=== PATIENT | female | born 1955 | race Caucasian/White ===

== ENCOUNTER 2020-11-24 15:15 | Observation (INO) | payer OTHER ==
[2020-11-24] MEDS ORDERED: BABY ASPIRIN 81 MG CHEW PO ONE (15:43)
[2020-11-24] MEDS ORDERED: NITRO-BID 2% UD PACKETS TOP ONE (15:43)
[2020-11-24] MEDS ORDERED: NITRO-BID 2% UD PACKETS ONE (15:46)
[2020-11-24] MEDS ORDERED: BABY ASPIRIN 81 MG CHEW ONE (15:46)
--- NOTE | 2020-11-24 15:52 | ERPHSYRPT ---
- History of Present Illness Time Seen by Provider: 11/24/20 15:21 Historian: patient Exam Limitations: no limitations Patient Subjective Stated Complaint: pt states that she has been having a chest discomfort off and on for the past couple of weeks but today it began hurting her left arm, pt had a holter monitor on a week ago from here due to palpatatins Triage Nursing Assessment: Pt drove self to the ER, hypertensive, bradycardic, rates the pressure in her chest as a 1/10, pulses normal, skin n/w/d, no edema, doesn't appear to be in any distress Physician History: 65 years old female with history of hypertension, hyperlipidemia, GERD, anxiety presented in the ER with 2 weeks history of intermittent central/substernal chest pressure fullness with associated palpitations and shortness of breath which last for a few minutes to an hour and improves on its own. Patient also reports feeling dizzy lightheaded during these episodes. She also noticed some tingling sensation in the left arm with the pain but does have some neck pain as well and could be this tingling coming from neck as well. Denies any fever chills or cough. Patient reports having recent evaluation with Holter monitoring which showed couple PVCs and PACs with no rhythm changes. She has cardiac cath done almost 7 years ago which was without any blockage needing PTCA. Timing/Duration: week(s) (2), intermittent, gradual onset Activities at Onset: rest Quality: fullness, pressure Location: central Chest Pain Radiation: arm Severity of Pain-Max: moderate Severity of Pain-Current: mild Modifying Factors: Improves With: nothing Associated Symptoms: palpitations, shortness of breath, dizziness Prior Chest Pain/Cardiac Workup: cardiac cath Nitro Today/Relief: no nitro taken today Aspirin Treatment Today: no aspirin today Allergies/Adverse Reactions: prochlorperazine [From Compazine] Allergy (Verified 11/24/20 15:25) Anaphylactic Reaction Sulfa (Sulfonamide Antibiotics) Allergy (Verified 11/24/20 15:25) Anaphylactic Reaction Home Medications: Aspirin 81 gm Chew [Baby Aspirin 81 mg Chew] 81 mg PO DAILY 11/24/20 [History] Atorvastatin Calcium [Lipitor 40Mg] 40 mg PO DAILY 11/24/20 [History] Bisoprolol Fumarate 10 mg PO BID 11/24/20 [History] Buspirone HCl 0.5 tab PO DAILY 11/24/20 [History] Gabapentin 300 mg [Neurontin 300 mg] 300 mg PO BID 11/24/20 [History] Montelukast Sodium 10 mg [Singulair 10 MG] 10 mg PO DAILY 11/24/20 [History] PANTOPRAZOLE 40 mg Tablet [Protonix 40MG Tablet] 40 mg PO QAM 11/24/20 [History] Venlafaxine HCl ER 75 mg [Effexor XR 75 MG] 75 mg PO DAILY 11/24/20 [History] Travel Risk - International Travel Have you traveled outside of the country in past 3 weeks: No - Coronavirus Screening Are you exhibiting any of the following symptoms?: No Close contact with a COVID-19 positive Pt in past 14-21 Days: No - Vaccine Status Have you recieved a Covid-19 vaccination: Yes 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[employer]: [employer] - Vaccination Dates Date of 2cond Vaccination (if applicable): 10/19/2020 - Review of Systems Constitutional: No Symptoms Eyes: No Symptoms Ears, Nose, & Throat: No Symptoms Respiratory: Dyspnea Cardiac: Chest Pain, Palpitations Abdominal/Gastrointestinal: No Symptoms Genitourinary Symptoms: No Symptoms Musculoskeletal: Neck Pain Skin: No Symptoms Neurological: Dizziness Psychological: No Symptoms Endocrine: No Symptoms Hematologic/Lymphatic: No Symptoms Immunological/Allergic: No Symptoms - Past Medical History Pertinent Past Medical History: Yes Neurological History: No Pertinent History Cardiac History: High Cholesterol, Hypertension Respiratory History: No Pertinent History Endocrine Medical History: No Pertinent History Musculoskeletal History: Degenerative Disk Disease, Osteoarthritis Other Medical History: SX HX: 3 C-SECTIONS - Past Surgical History Past Surgical History: Yes Female Surgical History: Section Other Surgical History: neck fusion - Social History Smoking Status: Never smoker Exposure to second hand smoke: No Drug Use: none Patient Lives Alone: Yes - Female History Hx Now: No - Nursing Vital Signs Nursing Vital Signs: Initial Vital Signs Pulse Rate 56 L 11/24/20 15:16 Respiratory Rate 17 11/24/20 15:16 Blood Pressure 195/79 11/24/20 15:16 O2 Sat by Pulse Oximetry 100 11/24/20 15:16 Pain Scale Pain Intensity 2 - Physical Exam General Appearance: no apparent distress, alert Eye Exam: PERRL/EOMI, eyes nml inspection Ears, Nose, Throat Exam: normal ENT inspection, TMs normal, pharynx normal Neck Exam: normal inspection, non-tender, supple, full range of motion Respiratory Exam: normal breath sounds, lungs clear Cardiovascular Exam: regular rate/rhythm, normal heart sounds Gastrointestinal/Abdomen Exam: soft, normal bowel sounds Back Exam: normal inspection, normal range of motion Extremity Exam: normal inspection, normal range of motion Neurologic Exam: alert, oriented x 3, cooperative, welt beater II-XII nml as tested Skin Exam: normal color SpO2 Interpretation: normal SpO2: 100 O2 Delivery: Room Air Ordered Tests: Active Orders 24 hr Category Date Time Status 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 Care 11/24/20 15:44 Active EKG-ER Only STAT Care 11/24/20 15:43 Active IV Insertion STAT Care 11/24/20 15:43 Active CHEST 1 VIEW (PORTABLE) Stat Exams 11/24/20 15:44 Completed CBC W DIFF Stat Lab 11/24/20 16:04 Completed CMP Stat Lab 11/24/20 16:04 Completed D-DIMER QUANTITATIVE Stat Lab 11/24/20 16:04 Completed NT PRO BNP Stat Lab 11/24/20 16:04 Completed TROPONIN Q3H Lab 11/24/20 16:04 Completed TROPONIN Q3H Lab 11/24/20 18:45 Ordered TROPONIN Q3H Lab 11/24/20 21:45 Ordered TROPONIN Q3H Lab 11/25/20 00:45 Ordered TROPONIN Q3H Lab 11/25/20 03:45 Ordered Medication Summary Discontinued Medications Generic Name Dose Route Start Last Admin Trade Name Freq PRN Reason Stop Dose Admin Aspirin 324 mg 11/24/20 15:43 11/24/20 15:48 Baby Aspirin 81 Mg Chew PO 11/24/20 15:44 324 mg STAT ONE Administration Aspirin Confirm 11/24/20 15:46 Baby Aspirin 81 Mg Chew Administered 11/24/20 15:47 Dose 324 mg .ROUTE .STK-MED ONE Nitroglycerin 1 gm 11/24/20 15:43 11/24/20 15:48 Nitro-Bid 2% Ud Packets TOP 11/24/20 15:44 1 gm STAT ONE Administration Nitroglycerin Confirm 11/24/20 15:46 Nitro-Bid 2% Ud Packets Administered 11/24/20 15:47 Dose 1 gm .ROUTE .STK-MED ONE Lab/Rad Data: Laboratory Result Diagrams 11/24/20 16:04 11/24/20 16:04 Laboratory Results 11/24/20 11/24/20 11/24/20 Range/Units 16:04 16:04 16:04 WBC (4.0-10.5) K/mm3 RBC (4.1-5.4) M/mm3 Hgb (12.0-16.0) gm/dl Hct (35-47) % MCV (78-100) fl MCH (26-32) pg MCHC (32-36) g/dl RDW (11.5-14.0) % Plt Count (150-450) K/mm3 MPV (7.5-11.0) fl Gran % (36.0-66.0) % Eos # (Auto) (0-0.5) Absolute Lymphs (auto) (1.0-4.6) Absolute Monos (auto) (0.0-1.3) Lymphocytes % (24.0-44.0) % Monocytes % (0.0-12.0) % Eosinophils % (0.00-5.0) % Basophils % (0.0-0.4) % Absolute Granulocytes (1.4-6.9) Basophils # (0-0.4) D-Dimer < 215 L (215-500) ng/mL Sodium 139 (137-145) mmol/L Potassium 3.7 (3.5-5.1) mmol/L Chloride 98 (98-107) mmol/L Carbon Dioxide 33 H (22-30) mmol/L Anion Gap 11.3 (5-15) MEQ/L BUN 13 (7-17) mg/dL Creatinine 0.71 (0.52-1.04) mg/dL Estimated GFR > 60.0 ML/MIN Glucose 92 (74-106) mg/dL Calcium 9.8 (8.4-10.2) mg/dL Total Bilirubin 0.40 (0.2-1.3) mg/dL AST 35 (14-36) U/L ALT 14 (0-35) U/L Alkaline Phosphatase 66 (38-126) U/L Troponin I < 0.012 (0.000-0.034) ng/mL NT-Pro-B Natriuret Pep 264 (0-900) pg/mL Serum Total Protein 7.4 (6.3-8.2) g/dL Albumin 4.5 (3.5-5.0) g/dL 11/24/20 Range/Units 16:04 WBC 7.7 (4.0-10.5) K/mm3 RBC 4.32 (4.1-5.4) M/mm3 Hgb 12.5 (12.0-16.0) gm/dl Hct 39.2 (35-47) % MCV 90.7 (78-100) fl MCH 28.9 (26-32) pg MCHC 31.9 L (32-36) g/dl RDW 13.7 (11.5-14.0) % Plt Count 267 (150-450) K/mm3 MPV 10.1 (7.5-11.0) fl Gran % 64.7 (36.0-66.0) % Eos # (Auto) 0.27 (0-0.5) Absolute Lymphs (auto) 1.85 (1.0-4.6) Absolute Monos (auto) 0.57 (0.0-1.3) Lymphocytes % 24.1 (24.0-44.0) % Monocytes % 7.4 (0.0-12.0) % Eosinophils % 3.5 (0.00-5.0) % Basophils % 0.3 (0.0-0.4) % Absolute Granulocytes 4.97 (1.4-6.9) Basophils # 0.02 (0-0.4) D-Dimer (215-500) ng/mL Sodium (137-145) mmol/L Potassium (3.5-5.1) mmol/L Chloride (98-107) mmol/L Carbon Dioxide (22-30) mmol/L Anion Gap (5-15) MEQ/L BUN (7-17) mg/dL Creatinine (0.52-1.04) mg/dL Estimated GFR ML/MIN Glucose (74-106) mg/dL Calcium (8.4-10.2) mg/dL Total Bilirubin (0.2-1.3) mg/dL AST (14-36) U/L ALT (0-35) U/L Alkaline Phosphatase (38-126) U/L Troponin I (0.000-0.034) ng/mL NT-Pro-B Natriuret Pep (0-900) pg/mL Serum Total Protein (6.3-8.2) g/dL Albumin (3.5-5.0) g/dL - Progress Progress: improved Air Movement: good Progress Note: 11/24/20 18:44 65 years old is evaluated for intermittent chest pain pressure. EKG did not show any acute ST elevations. Negative initial troponin and D-dimers. She is given aspirin and Nitropaste, reevaluation her pressure is completely resolved. Patient has cardiac cath done almost 7 years ago which was negative. I believe patient symptoms are equivalent to unstable angina and need at least trending of cardiac enzymes and started cardiac work-up. Discussed with Dr. Vargas and patient is accepted for admission. Blood Culture(s) Obtained: No Antibiotics given: No Discussed with : Marcial Will see patient in: hospital (observation) Counseled pt/family regarding: lab results, diagnosis, rad results - Departure Departure Disposition: Observation Clinical Impression: Chest pain, rule out acute myocardial infarction Condition: Stable Critical Care Time: No Referrals: CHRISTOPHER WILD [Primary Care Provider] -
--- NOTE | 2020-11-24 16:30 | XRAY ---
Indication: Chest pain/pressure and left arm numbness. Comparison: None Portable chest hyperinflated and clear. Heart not enlarged. Bony thorax intact with mild dextroscoliosis.
[2020-11-24 17:11] LABS: ALBUMIN 4.5 g/dL (3.5-5.0); ALKALINE PHOSPHATASE 66 U/L (38-126); ANION GAP 11.3 MEQ/L (5-15); BLOOD UREA NITROGEN 13 mg/dL (7-17); CHLORIDE 98 mmol/L (98-107); Calcium 9.8 mg/dL (8.4-10.2); Carbon Dioxide 33 mmol/L (22-30); Creatinine 1 0.71 mg/dL (0.52-1.04); EST GLOMERULAR FILTRATION RATE > 60.0 ML/MIN; Glucose 92 mg/dL (74-106); NT PRO BNP 264 pg/mL (0-900); Potassium 3.7 mmol/L (3.5-5.1); SGOT/AST 35 U/L (14-36); SGPT/ALT 14 U/L (0-35); SODIUM 139 mmol/L (137-145); Total Protein 7.4 g/dL (6.3-8.2)
[2020-11-24 17:40] LABS: Absolute Neutrophil Ct (ANC) 4.97 (1.4-6.9); BASOPHIL % 0.3 % (0.0-0.4); Basophil (Absolute #) 0.02 (0-0.4); Eosinophil % 3.5 % (0.00-5.0); Eosinophil (Absolute #) 0.27 (0-0.5); Hematocrit 39.2 % (35-47); Hemoglobin 12.5 gm/dl (12.0-16.0); Lymphocyte (Absolute #) 1.85 (1.0-4.6); Lymphocytes % 24.1 % (24.0-44.0); Mean Cell Volume 90.7 fl (78-100); Mean Corpuscular Hemoglobin 28.9 pg (26-32); Mean Corpuscular Hgb Concent. 31.9 g/dl (32-36); Mean Platelet Volume 10.1 fl (7.5-11.0); Monocyte (Absolute #) 0.57 (0.0-1.3); Monocytes % 7.4 % (0.0-12.0); Neutrophil % 64.7 % (36.0-66.0); Platelet Count 267 K/mm3 (150-450); Red Blood Count 4.32 M/mm3 (4.1-5.4); Red Cell Distribution Width 13.7 % (11.5-14.0); White Blood Count 7.7 K/mm3 (4.0-10.5)
[2020-11-24 20:13] LABS: INFLUENZA A NEGATIVE (NEGATIVE); INFLUENZA B NEGATIVE (NEGATIVE); RESPIRATORY SYNCTIAL VIRUS NEGATIVE (Negative)
[2020-11-24] MEDS ORDERED: Zofran 4 MG/2 ML VIAL IV PRN (21:51)
[2020-11-24] MEDS ORDERED: DUONEB 0.5-3 MG/3 ml Neb IH PRN (21:51)
[2020-11-24] MEDS ORDERED: MORPHINE SULFATE 2 MG INJ IV PRN (21:51)
[2020-11-24 23:16] VITALS: O2SAT 97
[2020-11-25] MEDS: TYLENOL 325 MG PO PRN ×2 (00:53→06:45)
[2020-11-25 05:26] LABS: Absolute Neutrophil Ct (ANC) 3.24 (1.4-6.9); BASOPHIL % 0.2 % (0.0-0.4); Basophil (Absolute #) 0.01 (0-0.4); Eosinophil % 4.8 % (0.00-5.0); Eosinophil (Absolute #) 0.28 (0-0.5); Hematocrit 36.2 % (35-47); Hemoglobin 11.5 gm/dl (12.0-16.0); Lymphocyte (Absolute #) 1.95 (1.0-4.6); Lymphocytes % 33.2 % (24.0-44.0); Mean Cell Volume 91.4 fl (78-100); Mean Corpuscular Hgb Concent. 31.8 g/dl (32-36); Mean Platelet Volume 9.9 fl (7.5-11.0); Monocytes % 6.8 % (0.0-12.0); Platelet Count 249 K/mm3 (150-450); Red Blood Count 3.96 M/mm3 (4.1-5.4); Red Cell Distribution Width 13.7 % (11.5-14.0); White Blood Count 5.9 K/mm3 (4.0-10.5)
[2020-11-25 05:49] LABS: ALBUMIN 4.1 g/dL (3.5-5.0); ALKALINE PHOSPHATASE 55 U/L (38-126); ANION GAP 9.3 MEQ/L (5-15); BLOOD UREA NITROGEN 12 mg/dL (7-17); CHLORIDE 103 mmol/L (98-107); Calcium 9.4 mg/dL (8.4-10.2); Carbon Dioxide 30 mmol/L (22-30); Creatinine 1 0.68 mg/dL (0.52-1.04); EST GLOMERULAR FILTRATION RATE > 60.0 ML/MIN; Glucose 89 mg/dL (74-106); Potassium 3.8 mmol/L (3.5-5.1); SGOT/AST 24 U/L (14-36); SGPT/ALT 13 U/L (0-35); SODIUM 138 mmol/L (137-145); Total Protein 6.9 g/dL (6.3-8.2)
[2020-11-25 08:18] VITALS: BP 124/68; PULSE 57
[2020-11-25] MEDS ORDERED: PROTONIX 40 MG IV IV SCH (10:00)
--- NOTE | 2020-12-14 21:21 | PCM.SSS ---
History of Present Illness - Chief Complaint Chief Complaint: Chest pain rule out MD Date: 11/25/20 History of Present Illness: is a 65 year old female. Presented to ER with intermittent chest pain over the past few weeks, but noted worsening of symptoms with sob and radiation down the left arm prompting ER visit, work-up in ER negative, it was felt patient should be further evaluated for chest pain to rule out MD. - Review of Systems Constitutional: No Fever, No Chills Eyes: No Symptoms Ears, Nose, & Throat: No Symptoms Respiratory: Short Of Breath, No Cough Cardiac: Chest Pain, No Edema, No Syncope Abdominal/Gastrointestinal: No Abdominal Pain, No Nausea, No Vomiting, No Diarrhea Genitourinary Symptoms: No Dysuria Musculoskeletal: No Back Pain, No Neck Pain Skin: No Rash Neurological: No Dizziness, No Focal Weakness, No Sensory Changes Psychological: No Symptoms Endocrine: No Symptoms Hematologic/Lymphatic: No Symptoms Immunological/Allergic: No Symptoms Medications & Allergies Home Medications: Home Medication List Aspirin 81 gm Chew [Baby Aspirin 81 mg Chew] 81 mg PO DAILY 11/24/20 [History Confirmed 11/24/20] Atorvastatin Calcium [Lipitor 40Mg] 40 mg PO DAILY 11/24/20 [History Confirmed 11/24/20] Bisoprolol Fumarate 10 mg PO BID 11/24/20 [History Confirmed 11/24/20] Buspirone HCl 0.5 tab PO DAILY 11/24/20 [History Confirmed 11/24/20] Gabapentin 300 mg [Neurontin 300 mg] 300 mg PO BID 11/24/20 [History Confirmed 11/24/20] Montelukast Sodium 10 mg [Singulair 10 MG] 10 mg PO DAILY 11/24/20 [History Confirmed 11/24/20] PANTOPRAZOLE 40 mg Tablet [Protonix 40MG Tablet] 40 mg PO QAM 11/24/20 [History Confirmed 11/24/20] Venlafaxine HCl ER 75 mg [Effexor XR 75 MG] 75 mg PO DAILY 11/24/20 [History Confirmed 11/24/20] Amlodipine Besylate 2.5 mg PO DAILY #30 tablet 11/25/20 [Rx] Allergies/Adverse Reactions: Allergies Allergy/AdvReac Type Severity Reaction Status Date / Time prochlorperazine Allergy Anaphylactic Verified 11/24/20 15:25 [From Compazine] Reaction Sulfa (Sulfonamide Allergy Anaphylactic Verified 11/24/20 15:25 Antibiotics) Reaction - Past Medical History Past Medical History: Yes Neurological History: No Pertinent History Cardiac History: High Cholesterol, Hypertension Respiratory History: No Pertinent History Endocrine Medical History: No Pertinent History Musculoskelatal History: Degenerative Disk Disease, Osteoarthritis Comment: SX HX: 3 C-SECTIONS - Female History Are you now?: No - Past Surgical History Past Surgical History: Yes Female Surgical History: Section Other Surgical History: neck fusion - Social History Smoking Status: Never smoker Exposure to second hand smoke: No Alcohol: Weekly Drug Use: none - Physical Exam General Appearance: no apparent distress, alert Neurologic Exam: alert, oriented x 3, cooperative, normal mood/affect, nml cerebellar function, nml station & gait, sensation nml, No motor deficits Eye Exam: PERRL/EOMI, eyes nml inspection Ears, Nose, Throat Exam: normal ENT inspection, TMs normal, pharynx normal, moist mucous membranes Neck Exam: normal inspection, non-tender, supple, full range of motion Respiratory Exam: normal breath sounds, lungs clear, No respiratory distress Cardiovascular Exam: regular rate/rhythm, normal heart sounds, normal peripheral pulses Gastrointestinal/Abdomen Exam: soft, normal bowel sounds, No tenderness, No mass Back Exam: normal inspection, normal range of motion, No CVA tenderness, No vertebral tenderness Extremity Exam: normal inspection, normal range of motion, pelvis stable Skin Exam: normal color, warm, dry, No rash Lymphatic Exam: No adenopathy Assessment/Plan (1) Chest pain, rule out acute myocardial infarction Status: Acute Assessment & Plan: observe for serial troponins, cardiac stress test will be ordered for further evaluation Code(s): R07.9 - CHEST PAIN, UNSPECIFIED (2) Uncontrolled hypertension Status: Acute Assessment & Plan: Will start on amlodipine Code(s): I10 - ESSENTIAL (PRIMARY) HYPERTENSION Hospital Summary - Hospital Course Hospital Course: Pt. admitted all troponin tests were negative and pt. ready for discharge. - Vitals & Intake/Output Vital Signs: Vital Signs Temperature 97.9 F 11/25/20 08:00 Pulse Rate 57 L 11/25/20 08:00 Respiratory Rate 16 11/25/20 08:00 Blood Pressure 124/68 11/25/20 08:00 O2 Sat by Pulse Oximetry 97 11/25/20 08:00 - Lab Result Diagrams: 11/25/20 04:40 11/25/20 04:40 - Procedures and Test Procedures and Tests throughout Hospitalization: Therapy Orders & Screens 11/25/20 09:15 Schedule Outpt Stress Test ROUTINE Comment: Diagnosis: Chest pain rule out MD Schedule Outpt Stress Test: Cardiolyte Stress Test Cardiolite Stress Test: Cardiolite Treadmill - Discharge Discharge Date: 11/25/20 Disposition: Home, Self-Care Condition: Stable Prescriptions: New Amlodipine Besylate 2.5 mg PO DAILY #30 tablet No Action Montelukast Sodium 10 mg [Singulair 10 MG] 10 mg PO DAILY Buspirone HCl 0.5 tab PO DAILY Bisoprolol Fumarate 10 mg PO BID Aspirin 81 gm Chew [Baby Aspirin 81 mg Chew] 81 mg PO DAILY Venlafaxine HCl ER 75 mg [Effexor XR 75 MG] 75 mg PO DAILY Gabapentin 300 mg [Neurontin 300 mg] 300 mg PO BID PANTOPRAZOLE 40 mg Tablet [Protonix 40MG Tablet] 40 mg PO QAM Atorvastatin Calcium [Lipitor 40Mg] 40 mg PO DAILY Instructions: Angina, Chest Pain, Chest Pain That Is Not Caused by the Heart (DC) Additional Instructions: Return to the hospital on December 09 at 7:00 am for your scheduled Stress Test. Follow up with: ALEXANDRIA RUELAS [ACTIVE STAFF] - 12/02/20 1:45 pm
== END 2020-11-25 10:25 | disposition home or self-care (01) ==
LOC: ED 15:15 → MED SURG 20:28
PROVIDERS: ADMIT Family Medicine; ATTEND Family Medicine
DX: R07.9 Chest pain, unspecified (principal); I10 Essential (primary) hypertension; E78.5 Hyperlipidemia, unspecified; R00.2 Palpitations; R42 Dizziness and giddiness; Z79.899 Other long term (current) drug therapy; Z20.828 Contact with and (suspected) exposure to other viral communicable diseases; E78.00 Pure hypercholesterolemia, unspecified
CPT/HCPCS: 0241U; 36000; 36415; 71045; 80053; 83880; 84484; 85025; 85379; 93005; 93041; 93268; 99284; G0378; A9270-GY

== ENCOUNTER 2021-05-11 12:31 | Emergency (ER) | payer OTHER ==
[2021-05-11] MEDS ORDERED: Sodium Chloride 0.9% 1000 ML 1,000 ML IV STA (12:59)
[2021-05-11] MEDS ORDERED: Zofran 4 MG/2 ML VIAL IV ONE (12:59)
[2021-05-11] MEDS ORDERED: Hydromorphone 1 mg/ml Injection IV ONE (12:59)
--- NOTE | 2021-05-11 12:59 | ERPHSYRPT ---
- History of Present Illness Time Seen by Provider: 05/11/21 12:50 Historian: patient Exam Limitations: no limitations Patient Subjective Stated Complaint: PT states "It started yesterday. I felt like I needed to go to the bathroom and I have been going all night and there is quite a bit of bright red blood in it. 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 Physician History: This is a 66-year-old white female patient of Dr. Ruelas who presents with left lower quadrant abdominal pain and some rectal bleeding. She has had associated nausea but no vomiting. She had loose stools that have been bloody. She has cramping pain in the left lower quadrant which she also feels into her back. Ho wever, she does say that she has chronic back pain from degenerative disc disease. Patient underwent a colonoscopy about a month ago which showed diverticula in the left colon per her report. Patient is not on any blood thinning medication. She does have a history of gastroesophageal reflux disea se, COPD and hypertension. Timing/Duration: yesterday Activities at Onset: none Quality: aching, cramping Abdominal Pain Onset Location: LLQ Pain Radiation: back Severity of Pain-Max: moderate (Left side) Modifying Factors: Improves With: nothing Associated Symptoms: diarrhea, loss of appetite, nausea, No chest pain, No fever/chills, No shortness of breath, No vomiting Previous symptoms: no prior history Allergies/Adverse Reactions: prochlorperazine [From Compazine] Allergy (Verified 11/24/20 15:25) Anaphylactic Reaction Sulfa (Sulfonamide Antibiotics) Allergy (Verified 11/24/20 15:25) Anaphylactic Reaction Home Medications: Aspirin 81 gm Chew [Baby Aspirin 81 mg Chew] 81 mg PO DAILY 11/24/20 [History] Atorvastatin Calcium [Lipitor 40Mg] 40 mg PO DAILY 11/24/20 [History] Bisoprolol Fumarate 10 mg PO BID 11/24/20 [History] Buspirone HCl 0.5 tab PO DAILY 11/24/20 [History] Gabapentin 300 mg [Neurontin 300 mg] 300 mg PO BID 11/24/20 [History] Montelukast Sodium 10 mg [Singulair 10 MG] 10 mg PO DAILY 11/24/20 [History] PANTOPRAZOLE 40 mg Tablet [Protonix 40MG Tablet] 40 mg PO QAM 11/24/20 [History] Venlafaxine HCl ER 75 mg [Effexor XR 75 MG] 75 mg PO DAILY 11/24/20 [History] Hx Tetanus, Diphtheria Vaccination/Date Given: Yes Hx Influenza Vaccination/Date Given: Yes Hx Pneumococcal Vaccination/Date Given: No Immunizations Up to Date: Yes Travel Risk - International Travel Have you traveled outside of the country in past 3 weeks: No - Coronavirus Screening Are you exhibiting any of the following symptoms?: No Close contact with a COVID-19 positive Pt in past 14-21 Days: No - Vaccine Status Have you recieved a Covid-19 vaccination: Yes 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: [employer] - Vaccination Dates Date of 2cond Vaccination (if applicable): 10/19/20 - Review of Systems Constitutional: No Symptoms Eyes: No Symptoms Ears, Nose, & Throat: No Symptoms Respiratory: No Symptoms Cardiac: No Symptoms Abdominal/Gastrointestinal: Abdominal Pain (Left lower quadrant), Nausea, Diarrhea, Hematochezia, Appetite Changes, No Vomiting Genitourinary Symptoms: No Symptoms Musculoskeletal: No Symptoms Skin: No Symptoms Neurological: No Symptoms Psychological: No Symptoms Endocrine: No Symptoms Hematologic/Lymphatic: No Symptoms Immunological/Allergic: No Symptoms All Other Systems: Reviewed and Negative - Past Medical History Pertinent Past Medical History: Yes Neurological History: No Pertinent History Cardiac History: High Cholesterol, Hypertension Respiratory History: No Pertinent History Endocrine Medical History: No Pertinent History Musculoskeletal History: Degenerative Disk Disease, Osteoarthritis Other Medical History: SX HX: 3 C-SECTIONS - Past Surgical History Past Surgical History: Yes Female Surgical History: Section Other Surgical History: neck fusion - Social History Smoking Status: Never smoker Exposure to second hand smoke: No Drug Use: none Patient Lives Alone: No - Nursing Vital Signs Nursing Vital Signs: Initial Vital Signs Temperature 97.6 F 05/11/21 12:44 Pulse Rate 76 05/11/21 12:44 Respiratory Rate 20 05/11/21 12:44 Blood Pressure 156/82 05/11/21 12:44 O2 Sat by Pulse Oximetry 100 05/11/21 12:44 Pain Scale Pain Intensity 6 - Physical Exam General Appearance: no apparent distress, alert, anxiety, thin Eye Exam: PERRL/EOMI, eyes nml inspection Ears, Nose, Throat Exam: normal ENT inspection, moist mucous membranes Neck Exam: normal inspection, non-tender, supple, full range of motion Respiratory Exam: normal breath sounds, lungs clear, airway intact, No chest tenderness, No respiratory distress Cardiovascular Exam: regular rate/rhythm, normal heart sounds, normal peripheral pulses Gastrointestinal/Abdomen Exam: soft, normal bowel sounds, tenderness (Left lower quadrant), guarding, No rebound Pelvic Exam: not done Rectal Exam: not done Back Exam: normal inspection, normal range of motion, No CVA tenderness, No vertebral tenderness Extremity Exam: normal inspection, normal range of motion, pelvis stable Neurologic Exam: alert, oriented x 3, cooperative, 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, normal mood/affect, nml cerebellar function, nml station & gait, sensation nml Skin Exam: normal color, warm, dry Lymphatic Exam: No adenopathy SpO2 Interpretation: normal SpO2: 100 O2 Delivery: Room Air - Course Nursing assessment & vital signs reviewed: Yes Ordered Tests: Active Orders 24 hr Category Date Time Status IV Insertion STAT Care 05/11/21 12:59 Active ABDOMEN AND PELVIS W/0 CONTRAS [CT] Stat Exams 05/11/21 13:00 Completed AMYLASE Stat Lab 05/11/21 12:20 Completed CBC W DIFF Stat Lab 05/11/21 12:20 Completed CMP Stat Lab 05/11/21 12:20 Completed FECAL OCCULT BLOOD - SCREENING Stat Lab 05/11/21 Ordered LIPASE Stat Lab 05/11/21 12:20 Completed Lactic Acid Stat Lab 05/11/21 13:10 Completed UA W/RFX UR CULTURE Stat Lab 05/11/21 13:00 Ordered Medication Summary Discontinued Medications Generic Name Dose Route Start Last Admin Trade Name Freq PRN Reason Stop Dose Admin Hydromorphone HCl 0.5 mg 05/11/21 12:59 05/11/21 13:07 Hydromorphone 1 Mg/Ml Injection IV 05/11/21 13:00 0.5 mg STAT ONE Administration Hydromorphone HCl Confirm 05/11/21 13:04 Hydromorphone 1 Mg/Ml Injection Administered 05/11/21 13:05 Dose 1 mg .ROUTE .STK-MED ONE Sodium Chloride 1,000 mls @ 999 mls/hr 05/11/21 12:59 05/11/21 14:12 Sodium Chloride 0.9% 1000 Ml IV 05/11/21 13:59 Infused .Q1H1M STA Infusion Sodium Chloride Confirm 05/11/21 13:05 Sodium Chloride 0.9% 1000 Ml Administered 05/11/21 13:06 Dose 1,000 mls @ ud .ROUTE .STK-MED ONE Ondansetron HCl 4 mg 05/11/21 12:59 05/11/21 13:06 Zofran 4 Mg/2 Ml Vial IV 05/11/21 13:00 4 mg STAT ONE Administration Ondansetron HCl Confirm 05/11/21 13:04 Zofran 4 Mg/2 Ml Vial Administered 05/11/21 13:05 Dose 4 mg .ROUTE .STK-MED ONE Lab/Rad Data: Laboratory Result Diagrams 05/11/21 12:20 05/11/21 12:20 Laboratory Results 05/11/21 05/11/21 05/11/21 Range/Units 13:10 12:20 12:20 WBC 8.8 (4.0-10.5) K/mm3 RBC 4.20 (4.1-5.4) M/mm3 Hgb 12.9 (12.0-16.0) gm/dl Hct 40.2 (35-47) % MCV 95.7 (78-100) fl MCH 30.7 (26-32) pg MCHC 32.1 (32-36) g/dl RDW 13.7 (11.5-14.0) % Plt Count 375 (150-450) K/mm3 MPV 9.3 (7.5-11.0) fl Gran % 73.8 H (36.0-66.0) % Eos # (Auto) 0.13 (0-0.5) Absolute Lymphs (auto) 1.36 (1.0-4.6) Absolute Monos (auto) 0.80 (0.0-1.3) Lymphocytes % 15.5 L (24.0-44.0) % Monocytes % 9.1 (0.0-12.0) % Eosinophils % 1.5 (0.00-5.0) % Basophils % 0.1 (0.0-0.4) % Absolute Granulocytes 6.49 (1.4-6.9) Basophils # 0.01 (0-0.4) Sodium 140 (137-145) mmol/L Potassium 3.6 (3.5-5.1) mmol/L Chloride 99 (98-107) mmol/L Carbon Dioxide 31 H (22-30) mmol/L Anion Gap 13.6 (5-15) MEQ/L BUN 10 (7-17) mg/dL Creatinine 0.89 (0.52-1.04) mg/dL Estimated GFR > 60.0 ML/MIN Glucose 115 H (74-106) mg/dL Lactic Acid 0.9 (0.4-2.0) Calcium 9.6 (8.4-10.2) mg/dL Total Bilirubin 0.50 (0.2-1.3) mg/dL AST 30 (14-36) U/L ALT 20 (0-35) U/L Alkaline Phosphatase 76 (38-126) U/L Serum Total Protein 7.6 (6.3-8.2) g/dL Albumin 4.5 (3.5-5.0) g/dL Amylase 68 (30-110) U/L Lipase 62 (23-300) U/L - Progress Progress: improved, pain not gone completely, re-examined Progress Note: 05/11/21 14:24 CT scan of the abdomen and pelvis without contrast shows minimal colitis in the descending colon without complications. (No abscess, no perforation) Counseled pt/family regarding: lab results, diagnosis, need for follow-up, rad results - Departure Departure Disposition: Home Clinical Impression: Colitis Condition: Stable Critical Care Time: No Referrals: ALEXANDRIA RUELAS MD [Primary Care Provider] - Additional Instructions: Drink plenty of fluids. Do not advance your diet until you are drinking plenty of clear liquids. Take your medication as prescribed. Follow-up with your primary care physician for persistent symptoms. Return to the emergency department symptoms worsen. Prescriptions: Ondansetron ODT 4 MG [Zofran Odt 4 mg] 4 mg PO Q6H PRN PRN #10 tablet PRN Reason: Vomiting Hydrocodone/APAP 5/325 [[place] 5/325 mg] 1 each PO Q8H PRN PRN #8 tablet MDD 3 PRN Reason: Pain Ciprofloxacin [Cipro 500 MG] 500 mg PO BID #14 tablet Metronidazole 500 mg [Flagyl 500 MG] 500 mg PO TID #21 tablet
[2021-05-11] MEDS ORDERED: Zofran 4 MG/2 ML VIAL ONE (13:04)
[2021-05-11] MEDS ORDERED: Hydromorphone 1 mg/ml Injection ONE (13:04)
[2021-05-11] MEDS ORDERED: Sodium Chloride 0.9% 1000 ML 1,000 ML ONE (13:05)
[2021-05-11 13:19] LABS: Absolute Neutrophil Ct (ANC) 6.49 (1.4-6.9); BASOPHIL % 0.1 % (0.0-0.4); Basophil (Absolute #) 0.01 (0-0.4); Eosinophil % 1.5 % (0.00-5.0); Eosinophil (Absolute #) 0.13 (0-0.5); Hematocrit 40.2 % (35-47); Hemoglobin 12.9 gm/dl (12.0-16.0); Lymphocyte (Absolute #) 1.36 (1.0-4.6); Lymphocytes % 15.5 % (24.0-44.0); Mean Cell Volume 95.7 fl (78-100); Mean Corpuscular Hemoglobin 30.7 pg (26-32); Mean Corpuscular Hgb Concent. 32.1 g/dl (32-36); Mean Platelet Volume 9.3 fl (7.5-11.0); Monocytes % 9.1 % (0.0-12.0); Neutrophil % 73.8 % (36.0-66.0); Platelet Count 375 K/mm3 (150-450); Red Cell Distribution Width 13.7 % (11.5-14.0); White Blood Count 8.8 K/mm3 (4.0-10.5)
[2021-05-11 13:46] LABS: ALBUMIN 4.5 g/dL (3.5-5.0); ALKALINE PHOSPHATASE 76 U/L (38-126); AMYLASE 68 U/L (30-110); ANION GAP 13.6 MEQ/L (5-15); BLOOD UREA NITROGEN 10 mg/dL (7-17); CHLORIDE 99 mmol/L (98-107); Calcium 9.6 mg/dL (8.4-10.2); Carbon Dioxide 31 mmol/L (22-30); Creatinine 1 0.89 mg/dL (0.52-1.04); EST GLOMERULAR FILTRATION RATE > 60.0 ML/MIN; Glucose 115 mg/dL (74-106); LIPASE 62 U/L (23-300); Potassium 3.6 mmol/L (3.5-5.1); SGOT/AST 30 U/L (14-36); SGPT/ALT 20 U/L (0-35); SODIUM 140 mmol/L (137-145); Total Protein 7.6 g/dL (6.3-8.2)
--- NOTE | 2021-05-11 14:06 | XRAY ---
Indication: Blood in stool, cramping, diarrhea, and nausea. Irritable bowel. Multiple contiguous images obtained through the abdomen and pelvis without contrast. Comparison: April 13, 2021. Lung bases remain clear. Heart not enlarged. Noncontrasted stomach and bowel loops remain nonobstructed. Descending colon now demonstrates mild wall thickening and minimal pericolonic stranding favoring colitis. No free fluid/air. 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 Remaining liver, gallbladder, pancreas, spleen, adrenal glands, kidneys, ureters, bladder, and uterus are unremarkable for noncontrast exam. Again minimal aortic calcifications without AAA. Osseous structures intact again with mild degenerative changes of the spine and moderate levorotoscoliosis. Impression: 1. New minimal colitis involving descending colon. No complications. 2. Stable right renal cyst, splenic artery calcified saccular aneurysm, and chronic bony findings.
[2021-05-11 14:14] VITALS: BP 157/76; PULSE 73
[2021-05-11] MEDS ORDERED: Zosyn 3.375 GM Vial 3.375 GM in Sodium Chloride 100ML MINI-BAG PLUS 100 ML IV ONE (14:23)
[2021-05-11 14:27] VITALS: O2SAT 100
== END 2021-05-11 15:10 | disposition home or self-care (01) ==
LOC: ED 12:31
DX: K52.9 Noninfective gastroenteritis and colitis, unspecified (principal)
CPT/HCPCS: 36000; 36415; 74176; 80053; 82150; 83605; 83690; 85025; 96374; 96375; 99284; J1170; J2405

== ENCOUNTER 2021-12-22 13:05 | Emergency (ER) | payer OTHER ==
--- NOTE | 2021-12-22 13:08 | ERPHSYRPT ---
- History of Present Illness Time Seen by Provider: 12/22/21 13:07 Historian: patient Physician History: This is a 66-year-old white female patient of Dr. Ruelas who presents to the emergency department with a 3-day history of several episodes of diarrheal stools despite the use of Imodium. Patient has never had anything like this in the past. She has no known exposure to any individual with similar symptoms. She has no known exposures to anybody with C. difficile infection. She has not been on antibiotics recently. Patient denies chest pain and she denies shortness of breath. Patient has a history of hypertension, elevated cholesterol degenerative disc disease. Patient believes she had a colonoscopy approximately a year or 2 ago. Timing/Duration: day(s) (3) Quality: aching Abdominal Pain Onset Location: generalized abdomen (Mild ache) Severity of Pain-Max: mild Severity of Pain-Current: mild Modifying Factors: Worsens With: vomiting Associated Symptoms: diarrhea, No chest pain, No headache, No loss of appetite, No nausea, No vomiting, No weakness Previous symptoms: no prior history Allergies/Adverse Reactions: Iodinated Contrast Media Allergy (Verified 12/22/21 13:37) prochlorperazine [From Compazine] Allergy (Verified 12/22/21 13:28) Anaphylactic Reaction Sulfa (Sulfonamide Antibiotics) Allergy (Verified 12/22/21 13:28) Anaphylactic Reaction Home Medications: Atorvastatin Calcium [Lipitor 40Mg] 40 mg PO DAILY 11/24/20 [History] Bisoprolol Fumarate 10 mg PO BID 11/24/20 [History] Buspirone HCl 0.5 tab PO DAILY 11/24/20 [History] Gabapentin [Neurontin 300 mg] 300 mg PO BID 11/24/20 [History] PANTOPRAZOLE 40 mg Tablet [Protonix 40MG Tablet] 40 mg PO BID 11/24/20 [History] Venlafaxine HCl ER 75 mg [Effexor XR 75 MG] 150 mg PO DAILY 11/24/20 [History] Albuterol Sulfate [Proair Hfa] 8.5 gm IH UD 12/22/21 [History] Amlodipine Besylate 10 mg PO DAILY 12/22/21 [History] Lisinopril 10 mg [Zestril 10 MG] 10 mg PO DAILY 12/22/21 [History] Meloxicam [Mobic] 15 mg PO UD 12/22/21 [History] Progesterone, Micronized [Progesterone] 200 mg PO DAILY 12/22/21 [History] Hx Tetanus, Diphtheria Vaccination/Date Given: Yes Hx Influenza Vaccination/Date Given: Yes Hx Pneumococcal Vaccination/Date Given: No Travel Risk - International Travel Have you traveled outside of the country in past 3 weeks: No - Coronavirus Screening Are you exhibiting any of the following symptoms?: No Close contact with a COVID-19 positive Pt in past 14-21 Days: No - Vaccine Status Have you recieved a Covid-19 vaccination: Yes 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[employer] - Vaccination Dates Date of 2cond Vaccination (if applicable): 10/19/20 - Review of Systems Constitutional: No Symptoms Eyes: No Symptoms Ears, Nose, & Throat: No Symptoms Respiratory: No Symptoms Cardiac: No Symptoms Abdominal/Gastrointestinal: Abdominal Pain, Diarrhea Genitourinary Symptoms: No Symptoms Musculoskeletal: No Symptoms Skin: No Symptoms Neurological: No Symptoms Psychological: No Symptoms Endocrine: No Symptoms Hematologic/Lymphatic: No Symptoms Immunological/Allergic: No Symptoms All Other Systems: Reviewed and Negative - Past Medical History Pertinent Past Medical History: Yes Neurological History: No Pertinent History Cardiac History: High Cholesterol, Hypertension Respiratory History: No Pertinent History Endocrine Medical History: No Pertinent History Musculoskeletal History: Degenerative Disk Disease, Osteoarthritis Other Medical History: SX HX: 3 C-SECTIONS - Past Surgical History Past Surgical History: Yes Female Surgical History: Section Other Surgical History: neck fusion - Social History Smoking Status: Never smoker Exposure to second hand smoke: No Drug Use: none Patient Lives Alone: No - Nursing Vital Signs Nursing Vital Signs: Initial Vital Signs Temperature 97.0 F 12/22/21 13:11 Pulse Rate 69 12/22/21 13:11 Blood Pressure 123/65 12/22/21 13:11 O2 Sat by Pulse Oximetry 100 12/22/21 13:11 Pain Scale Pain Intensity 5 - Physical Exam General Appearance: no apparent distress, alert, anxiety, thin Eye Exam: PERRL/EOMI, eyes nml inspection Ears, Nose, Throat Exam: normal ENT inspection, moist mucous membranes Neck Exam: normal inspection, non-tender, supple, full range of motion Respiratory Exam: normal breath sounds, lungs clear, airway intact, No chest tenderness, No respiratory distress Cardiovascular Exam: regular rate/rhythm, normal heart sounds, normal peripheral pulses Gastrointestinal/Abdomen Exam: soft, normal bowel sounds, tenderness, No rebound (Mild diffuse) Pelvic Exam: not done Rectal Exam: not done Back Exam: normal inspection, normal range of motion, vertebral tenderness, No CVA tenderness Extremity Exam: normal inspection, normal range of motion, pelvis stable Neurologic Exam: alert, oriented x 3, 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, 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, normal mood/affect, nml cerebellar function, nml station & gait, sensation nml Skin Exam: normal color, warm, dry Lymphatic Exam: No adenopathy SpO2 Interpretation: normal O2 Delivery: Room Air - Course Nursing assessment & vital signs reviewed: Yes Ordered Tests: Active Orders 24 hr Category Date Time Status IV Insertion STAT Care 12/22/21 13:38 Active ABDOMEN AND PELVIS W/0 CONTRAS [CT] Stat Exams 12/22/21 13:38 Completed AMYLASE Stat Lab 12/22/21 13:14 Completed CBC W DIFF Stat Lab 12/22/21 13:14 Completed CMP Stat Lab 12/22/21 13:14 Completed LIPASE Stat Lab 12/22/21 13:14 Completed UA W/RFX CULTURE Stat Lab 12/22/21 14:57 Completed Medication Summary Generic Name Dose Route Start Last Admin Trade Name Freq PRN Reason Stop Dose Admin Sodium Chloride 500 mls @ 500 mls/hr 12/22/21 15:28 12/22/21 15:33 Sodium Chloride 0.9% 500 Ml IV 12/22/21 16:27 500 mls/hr .Q1H ONE Administration Discontinued Medications Generic Name Dose Route Start Last Admin Trade Name Freq PRN Reason Stop Dose Admin Sodium Chloride 1,000 mls @ 999 mls/hr 12/22/21 13:38 12/22/21 14:50 Sodium Chloride 0.9% 1000 Ml IV 12/22/21 14:38 Infused .Q1H1M STA Infusion Sodium Chloride Confirm 12/22/21 13:43 Sodium Chloride 0.9% 1000 Ml Administered 12/22/21 13:44 Dose 1,000 mls @ ud .ROUTE .STK-MED ONE Sodium Chloride Confirm 12/22/21 15:33 Sodium Chloride 0.9% 500 Ml Administered 12/22/21 15:34 Dose 500 mls @ ud IV .STK-MED ONE Ondansetron HCl 4 mg 12/22/21 13:38 12/22/21 13:45 Ondansetron Hcl 4 Mg/2 Ml Vial IV 12/22/21 13:39 4 mg STAT ONE Administration Ondansetron HCl Confirm 12/22/21 13:43 Ondansetron Hcl 4 Mg/2 Ml Vial Administered 12/22/21 13:44 Dose 4 mg .ROUTE .STK-MED ONE Lab/Rad Data: Laboratory Result Diagrams 12/22/21 13:14 12/22/21 13:14 Laboratory Results 12/22/21 12/22/21 12/22/21 Range/Units 14:57 13:14 13:14 WBC 6.3 (4.0-10.5) x10^3/uL RBC 3.97 L (4.1-5.4) x10^6/uL Hgb 11.5 L (12.0-16.0) g/dL Hct 36.7 (35-47) % MCV 92.4 (78-100) fL MCH 29.0 (26-32) pg MCHC 31.3 L (32-36) g/dL RDW 14.4 H (11.5-14.0) % Plt Count 232 (150-450) x10^3/uL MPV 9.5 (7.5-11.0) fL Gran % 76.1 H (36.0-66.0) % Immature Gran % (Auto) 0.3 (0.00-0.4) % Nucleat RBC Rel Count 0.0 (0.00-0.1) % Eos # (Auto) 0.09 (0-0.5) x10^3/uL Immature Gran # (Auto) 0.02 (0.00-0.03) x10^3u/L Absolute Lymphs (auto) 0.73 L (1.0-4.6) x10^3/uL Absolute Monos (auto) 0.65 (0.0-1.3) x10^3/uL Absolute Nucleated RBC 0.00 (0.00-0.01) x10^3u/L Lymphocytes % 11.6 L (24.0-44.0) % Monocytes % 10.4 (0.0-12.0) % Eosinophils % 1.4 (0.00-5.0) % Basophils % 0.2 (0.0-0.4) % Absolute Granulocytes 4.78 (1.4-6.9) x10^3/uL Basophils # 0.01 (0-0.4) x10^3/uL Sodium 133 L (137-145) mmol/L Potassium 3.6 (3.5-5.1) mmol/L Chloride 101 (98-107) mmol/L Carbon Dioxide 26 (22-30) mmol/L Anion Gap 9.7 (5-15) MEQ/L BUN 7 (7-17) mg/dL Creatinine 0.65 (0.52-1.04) mg/dL Estimated GFR > 60.0 ML/MIN Glucose 88 (74-106) mg/dL Calcium 8.3 L (8.4-10.2) mg/dL Total Bilirubin 0.40 (0.2-1.3) mg/dL AST 129 H (14-36) U/L ALT 138 H (0-35) U/L Alkaline Phosphatase 54 (38-126) U/L Serum Total Protein 6.5 (6.3-8.2) g/dL Albumin 3.6 (3.5-5.0) g/dL Amylase 59 (30-110) U/L Lipase 111 (23-300) U/L Urinalys Dipstick Clnc MAIN LAB Urine Color YELLOW (YELLOW) Urine Appearance CLEAR (CLEAR) Urine pH 6.0 (5-6) Ur Specific [place] 1.010 (1.005-1.025) POC Urine Protein Conf NEGATIVE (Negative) Urine Ketones NEGATIVE (NEGATIVE) Urine Nitrite NEGATIVE (NEGATIVE) Urine Bilirubin NEGATIVE (NEGATIVE) Urine Urobilinogen 0.2 (0-1) mg/dL Urine Leukocytes NEGATIVE (NEGATIVE) Urine WBC (Auto) NONE (0-5) /HPF U Epithel Cells (Auto) RARE (FEW) /HPF Urine RBC NEGATIVE (0-5) Parvez/ul Ur Culture Indicated? NO Urine Glucose NEGATIVE (NEGATIVE) mg/dL - Progress Progress Note: 12/22/21 15:17 CAT scan of the abdomen pelvis shows a distended gallbladder without gallstones. There are no other acute findings present. Counseled pt/family regarding: lab results, diagnosis, need for follow-up, rad results - Departure Departure Disposition: Home Clinical Impression: Diarrhea, Colitis Condition: Stable Critical Care Time: No Referrals: ALEXANDRIA RUELAS MD [ACTIVE STAFF] - Follow up/PCP as directed Additional Instructions: Drink plenty of fluids. Take your antibiotics as prescribed. Follow-up with your primary care physician for further management. Prescriptions: Metronidazole 500 mg [Flagyl 500 MG] 500 mg PO TID #21 tablet
[2021-12-22] MEDS ORDERED: Zofran 4 MG/2 ML VIAL IV ONE (13:38)
[2021-12-22] MEDS ORDERED: Sodium Chloride 0.9% 1000 ML 1,000 ML IV STA (13:38)
[2021-12-22] MEDS ORDERED: Sodium Chloride 0.9% 1000 ML 1,000 ML ONE (13:43)
[2021-12-22] MEDS ORDERED: Zofran 4 MG/2 ML VIAL ONE (13:43)
--- NOTE | 2021-12-22 14:21 | XRAY ---
Indication: Nausea and diarrhea. Multiple contiguous axial images obtained through the abdomen and pelvis without contrast. Comparison: May 11, 2021. Lung bases remain clear. Heart not enlarged. Noncontrasted stomach and bowel loops nonobstructed. Appendix not visualized. Gallbladder now moderately distended without gallstones. Stable large right renal cyst and small splenic artery calcified saccular aneurysm. No free fluid/air. Remaining liver, gallbladder, pancreas, spleen, adrenal glands, kidneys, ureters, bladder, and uterus are unremarkable for noncontrast exam. Again minimal aortic calcifications without AAA. Osseous structures intact again with mild degenerative changes of the spine and moderate levorotoscoliosis. Impression: 1. New distended gallbladder without gallstones. Sonogram may yield further information if clinically warranted. 2. Stable right renal cyst, splenic artery calcified saccular aneurysm, and chronic bony findings.
[2021-12-22 14:23] LABS: ALBUMIN 3.6 g/dL (3.5-5.0); ALKALINE PHOSPHATASE 54 U/L (38-126); AMYLASE 59 U/L (30-110); ANION GAP 9.7 MEQ/L (5-15); BLOOD UREA NITROGEN 7 mg/dL (7-17); CHLORIDE 101 mmol/L (98-107); Calcium 8.3 mg/dL (8.4-10.2); Carbon Dioxide 26 mmol/L (22-30); Creatinine 1 0.65 mg/dL (0.52-1.04); EST GLOMERULAR FILTRATION RATE > 60.0 ML/MIN; Glucose 88 mg/dL (74-106); LIPASE 111 U/L (23-300); Potassium 3.6 mmol/L (3.5-5.1); SGOT/AST 129 U/L (14-36); SGPT/ALT 138 U/L (0-35); SODIUM 133 mmol/L (137-145); Total Protein 6.5 g/dL (6.3-8.2)
[2021-12-22 14:29] LABS: Absolute Neutrophil Ct (ANC) 4.78 x10^3/uL (1.4-6.9); Basophil (Absolute #) 0.01 x10^3/uL (0-0.4); Eosinophil % 1.4 % (0.00-5.0); Eosinophil (Absolute #) 0.09 x10^3/uL (0-0.5); Hematocrit 36.7 % (35-47); Hemoglobin 11.5 g/dL (12.0-16.0); Lymphocyte (Absolute #) 0.73 x10^3/uL (1.0-4.6); Lymphocytes % 11.6 % (24.0-44.0); Mean Cell Volume 92.4 fL (78-100); Mean Corpuscular Hgb Concent. 31.3 g/dL (32-36); Mean Platelet Volume 9.5 fL (7.5-11.0); Monocyte (Absolute #) 0.65 x10^3/uL (0.0-1.3); Monocytes % 10.4 % (0.0-12.0); Neutrophil % 76.1 % (36.0-66.0); Platelet Count 232 x10^3/uL (150-450); Red Blood Count 3.97 x10^6/uL (4.1-5.4); Red Cell Distribution Width 14.4 % (11.5-14.0); White Blood Count 6.3 x10^3/uL (4.0-10.5)
[2021-12-22] MEDS ORDERED: Sodium Chloride 0.9% 500 ML 500 ML IV ONE ×2 (15:28→15:33)
[2021-12-22 15:41] LABS: Epithelial Cells RARE /HPF (FEW)
[2021-12-22 15:42] LABS: Appearance CLEAR (CLEAR); Bilirubin NEGATIVE (NEGATIVE); Glucose NEGATIVE (NEGATIVE); Ketones NEGATIVE (NEGATIVE); Nitrite NEGATIVE (NEGATIVE); Protein,Urine Dip NEGATIVE (Negative); RBC NEGATIVE Ery/ul (0-5); Urine Cultured Indicated? NO; Urobilinogen 0.2 mg/dL (0-1)
[2021-12-22 15:44] LABS: Dipstick done @ ? MAIN LAB
[2021-12-22] MEDS ORDERED: Flagyl 500 MG PO ONE (16:00)
[2021-12-22] MEDS ORDERED: Flagyl 500 MG ONE (16:05)
[2021-12-22 16:07] VITALS: BP 128/72; PULSE 75; O2SAT 98
== END 2021-12-22 16:11 | disposition home or self-care (01) ==
LOC: ED 13:05
DX: K52.9 Noninfective gastroenteritis and colitis, unspecified (principal); I10 Essential (primary) hypertension; E78.5 Hyperlipidemia, unspecified; Z79.899 Other long term (current) drug therapy
CPT/HCPCS: 36000; 36415; 74176; 80053; 81015; 82150; 83690; 85025; 96360; 96374; 99284; J2405; A9270-GY

== ENCOUNTER 2023-05-24 10:46 | Emergency (ER) | payer MEDICARE ==
[2023-05-24 11:02] VITALS: TEMP 97.3
[2023-05-24] MEDS ORDERED: MORPHINE SULFATE 4 MG INJ IV ONE (11:35)
[2023-05-24] MEDS ORDERED: Zofran 4 MG/2 ML VIAL IV ONE (11:35)
[2023-05-24] MEDS ORDERED: Sodium Chloride 0.9% 1000 ML 1,000 ML IV STA (11:35)
[2023-05-24] MEDS ORDERED: Sodium Chloride 0.9% 1000 ML 1,000 ML ONE (11:38)
[2023-05-24] MEDS ORDERED: MORPHINE SULFATE 4 MG INJ ONE (11:38)
[2023-05-24] MEDS ORDERED: Zofran 4 MG/2 ML VIAL ONE (11:38)
--- NOTE | 2023-05-24 11:40 | ERPHSYRPT ---
- History of Present Illness Time Seen by Provider: 05/24/23 10:55 Historian: patient Exam Limitations: no limitations Patient Subjective Stated Complaint: Pt states "I have been fighting UTI's but this morning, I had so much pain on my right upper abdomen that went into my back that I was doubled over." Triage Nursing Assessment: Pt presented alert and oriented X 3, skin pwd. Pt ambulates with an upright steady gait, able to speak in clear full sentences. Pt is tender in right upper quad Physician History: 68 years old female presented in the ER with chief complaint of right upper quadrant pain almost couple of hours moderate to severe sharp with some radiation to the back/wrapping around, aggravated with palpation movements with associated nausea but no vomiting. Denies constipation or diarrhea. Denies any chest pain palpitations or shortness of breath. Denies any history of pelvic colic. No fever or chills reported. Timing/Duration: today Activities at Onset: rest Quality: sharpness Abdominal Pain Onset Location: RUQ Severity of Pain-Max: severe Severity of Pain-Current: severe Modifying Factors: Worsens With: movement, palpation Associated Symptoms: nausea Previous symptoms: same symptoms as today Allergies/Adverse Reactions: Iodinated Contrast Media Allergy (Verified 12/22/21 13:37) prochlorperazine [From Compazine] Allergy (Verified 12/22/21 13:28) Anaphylactic Reaction Sulfa (Sulfonamide Antibiotics) Allergy (Verified 12/22/21 13:28) Anaphylactic Reaction Home Medications: Atorvastatin Calcium [Lipitor 40Mg] 40 mg PO DAILY 11/24/20 [History] Bisoprolol Fumarate 10 mg PO BID 11/24/20 [History] Buspirone HCl 0.5 tab PO DAILY 11/24/20 [History] Gabapentin [Neurontin 300 mg] 300 mg PO BID 11/24/20 [History] PANTOPRAZOLE 40 mg Tablet [Protonix 40MG Tablet] 40 mg PO BID 11/24/20 [History] Venlafaxine HCl ER 75 mg [Effexor XR 75 MG] 150 mg PO DAILY 11/24/20 [History] Albuterol Sulfate [Proair Hfa] 8.5 gm IH UD 12/22/21 [History] Amlodipine Besylate 10 mg PO DAILY 12/22/21 [History] Lisinopril 10 mg [Zestril 10 MG] 10 mg PO DAILY 12/22/21 [History] Meloxicam [Mobic] 15 mg PO UD 12/22/21 [History] Progesterone, Micronized [Progesterone] 200 mg PO DAILY 12/22/21 [History] Nitrofurantoin Macro 100 mg [Macrobid 100MG Capsule] 100 mg PO BID 05/24/23 [History] Hx Tetanus, Diphtheria Vaccination/Date Given: No Hx Influenza Vaccination/Date Given: Yes Hx Pneumococcal Vaccination/Date Given: Yes Immunizations Up to Date: Yes Travel Risk - International Travel Have you traveled outside of the country in past 3 weeks: No - Coronavirus Screening Are you exhibiting any of the following symptoms?: No Close contact with a COVID-19 positive Pt in past 14-21 Days: No - Vaccine Status Have you recieved a Covid-19 vaccination: Yes 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: [place] - Vaccination Dates Date of 2cond Vaccination (if applicable): 10/19/20 - Review of Systems Constitutional: No Symptoms Eyes: No Symptoms Ears, Nose, & Throat: No Symptoms Respiratory: No Symptoms Cardiac: No Symptoms Abdominal/Gastrointestinal: Abdominal Pain, Nausea Genitourinary Symptoms: No Symptoms Musculoskeletal: No Symptoms Skin: No Symptoms Neurological: No Symptoms Endocrine: No Symptoms Hematologic/Lymphatic: No Symptoms Immunological/Allergic: No Symptoms - Past Medical History Pertinent Past Medical History: Yes Neurological History: No Pertinent History Cardiac History: High Cholesterol, Hypertension Respiratory History: No Pertinent History Endocrine Medical History: No Pertinent History Musculoskeletal History: Arthritis, Other History: Renal Disease Other Medical History: HX HIP PN W/ OA, LBP; PF WEAKNESS W/ PF P.T. RECENTLY WELL. - Past Surgical History Past Surgical History: Yes Female Surgical History: Section Other Surgical History: neck fusion - Social History Smoking Status: Never smoker Exposure to second hand smoke: No Drug Use: none Patient Lives Alone: No - Nursing Vital Signs Nursing Vital Signs: Initial Vital Signs Temperature 97.3 F 05/24/23 10:54 Pulse Rate 57 L 05/24/23 10:54 Respiratory Rate 20 05/24/23 10:54 Blood Pressure 141/58 05/24/23 10:54 O2 Sat by Pulse Oximetry 99 05/24/23 10:54 Pain Scale Pain Intensity 4 - Physical Exam General Appearance: no apparent distress, alert Eye Exam: PERRL/EOMI Ears, Nose, Throat Exam: normal ENT inspection Neck Exam: normal inspection, non-tender, supple, full range of motion Respiratory Exam: normal breath sounds, lungs clear Cardiovascular Exam: regular rate/rhythm, normal heart sounds Gastrointestinal/Abdomen Exam: soft, normal bowel sounds, tenderness (Right upper quadrant with positive Davison sign) Back Exam: normal inspection, normal range of motion Extremity Exam: normal inspection, normal range of motion Neurologic Exam: alert, oriented x 3, 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, 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 Skin Exam: normal color SpO2 Interpretation: normal SpO2: 99 O2 Delivery: Room Air Ordered Tests: Active Orders 24 hr Category Date Time Status IV Insertion STAT Care 05/24/23 11:35 Active NPO (ED) STAT Care 05/24/23 11:35 Active GALLBLADDER [US] Stat Exams 05/24/23 11:41 Completed CBC W DIFF Stat Lab 05/24/23 11:00 Completed CMP Stat Lab 05/24/23 11:00 Completed LIPASE Stat Lab 05/24/23 11:00 Completed UA W/RFX UR CULTURE Stat Lab 05/24/23 11:37 Completed Medication Summary Discontinued Medications Generic Name Dose Route Start Last Admin Trade Name Freq PRN Reason Stop Dose Admin Sodium Chloride 1,000 mls @ 999 mls/hr 05/24/23 11:35 05/24/23 12:42 Sodium Chloride 0.9% 1000 Ml IV 05/24/23 12:35 Infused .Q1H1M STA Infusion Sodium Chloride Confirm 05/24/23 11:38 Sodium Chloride 0.9% 1000 Ml Administered 05/24/23 11:39 Dose 1,000 mls @ ud .ROUTE .STK-MED ONE Ketorolac Tromethamine 30 mg 05/24/23 13:04 05/24/23 13:09 Ketorolac Tromethamine 30 Mg/Ml Inj IM 05/24/23 13:05 30 mg STAT ONE Administration Ketorolac Tromethamine Confirm 05/24/23 13:06 Ketorolac Tromethamine 30 Mg/Ml Inj Administered 05/24/23 13:07 Dose 30 mg .ROUTE .STK-MED ONE Morphine Sulfate 4 mg 05/24/23 11:35 05/24/23 11:39 Morphine Sulfate 4 Mg/Ml Injection IV 05/24/23 11:36 4 mg STAT ONE Administration Morphine Sulfate Confirm 05/24/23 11:38 Morphine Sulfate 4 Mg/Ml Injection Administered 05/24/23 11:39 Dose 4 mg .ROUTE .STK-MED ONE Ondansetron HCl 4 mg 05/24/23 11:35 05/24/23 11:39 Ondansetron Hcl 4 Mg/2 Ml Vial IV 05/24/23 11:36 4 mg STAT ONE Administration Ondansetron HCl Confirm 05/24/23 11:38 Ondansetron Hcl 4 Mg/2 Ml Vial Administered 05/24/23 11:39 Dose 4 mg .ROUTE .STK-MED ONE Lab/Rad Data: Laboratory Result Diagrams 05/24/23 11:00 05/24/23 11:00 Laboratory Results 05/24/23 05/24/23 05/24/23 Range/Units 11:37 11:00 11:00 WBC 7.3 (4.0-10.5) x10^3/uL RBC 4.13 (4.1-5.4) x10^6/uL Hgb 12.6 (12.0-16.0) g/dL Hct 38.2 (35-47) % MCV 92.5 (78-100) fL MCH 30.5 (26-32) pg MCHC 33.0 (32-36) g/dL RDW 12.6 (11.5-14.0) % Plt Count 287 (150-450) x10^3/uL MPV 9.7 (7.5-11.0) fL Gran % 67.2 H (36.0-66.0) % Immature Gran % (Auto) 0.3 (0.00-0.4) % Nucleat RBC Rel Count 0.0 (0.00-0.1) % Eos # (Auto) 0.25 (0-0.5) x10^3/uL Immature Gran # (Auto) 0.02 (0.00-0.03) x10^3u/L Absolute Lymphs (auto) 1.48 (1.0-4.6) x10^3/uL Absolute Monos (auto) 0.58 (0.0-1.3) x10^3/uL Absolute Nucleated RBC 0.00 (0.00-0.01) x10^3u/L Lymphocytes % 20.4 L (24.0-44.0) % Monocytes % 8.0 (0.0-12.0) % Eosinophils % 3.4 (0.00-5.0) % Basophils % 0.7 (0.0-0.4) % Absolute Granulocytes 4.89 (1.4-6.9) x10^3/uL Basophils # 0.05 (0-0.4) x10^3/uL Sodium 136 L (137-145) mmol/L Potassium 4.0 (3.5-5.1) mmol/L Chloride 99 (98-107) mmol/L Carbon Dioxide 28 (22-30) mmol/L Anion Gap 12.9 (5-15) MEQ/L BUN 15 (7-17) mg/dL Creatinine 0.79 (0.52-1.04) mg/dL Estimated GFR > 60.0 ML/MIN Glucose 100 (74-106) mg/dL Calcium 8.8 (8.4-10.2) mg/dL Total Bilirubin 0.70 (0.2-1.3) mg/dL AST 32 (14-36) U/L ALT 23 (0-35) U/L Alkaline Phosphatase 65 (38-126) U/L Serum Total Protein 7.3 (6.3-8.2) g/dL Albumin 4.2 (3.5-5.0) g/dL Lipase 146 (23-300) U/L Urine Color Yellow (Yellow) Urine Appearance Clear (Clear) Urine pH 7.5 (4.6-8.0) Ur Specific [place] 1.015 (1.005-1.030) Urine Protein Negative (Negative) Urine Glucose (UA) Negative (Negative) mg/dL Urine Ketones Negative (Negative) Urine Blood Negative (Negative) Urine Nitrite Negative (Negative) Urine Bilirubin Negative (Negative) Urine Urobilinogen 0.2 (0.2) mg/dL Ur Leukocyte Esterase Negative (Negative) U Hyaline Cast (Auto) NONE SEEN (0-2) /LPF Urine Microscopic RBC 0-2 (0-5) /HPF Urine Microscopic WBC 0-2 (0-5) /HPF Ur Epithelial Cells Moderate A (None Seen) /HPF Urine Bacteria None Seen (None Seen) /HPF Urine Culture Reflexed NO (NO) - Progress Progress: improved, re-examined Progress Note: 05/24/23 14:51 68 years old female presented in the ER with chief complaint of right upper quadrant pain almost couple of hours moderate to severe sharp with some radiation to the back/wrapping around, aggravated with palpation movements with associated nausea but no vomiting. Denies constipation or diarrhea. Denies any chest pain palpitations or shortness of breath. Denies any history of pelvic colic. No fever or chills reported. On exam she has positive Davison sign. Given symptomatic treatment for pain along with fluids, on reevaluation she is feeling much better. Work-up showed normal white count, normal chemistries including liver enzymes. No UTI. I have obtained ultrasound which showed gallbladder sludge with normal CBD. I have discussed with Dr. Joe Cornell, reviewed history, work-up, recommended outpatient follow-up. I have discussed with patient about the results of work- up and general surgery recommendations and she agrees with outpatient follow-up and has an appointment Sunday morning. I will give her [place]'s and Zofran for symptomatic relief and outpatient follow-up. Discussed signs symptoms of worsening needing return to ER which she seems understanding Stable for discharge. Discussed with .: [place] Will see patient in: office Counseled pt/family regarding: lab results, diagnosis, need for follow-up, rad results Medical Desision Making - Discussion of managment Care discussed with:: specialist (Dr. Joe Cornell general surgeon) Reviewed:: Test results Agreed on:: Treatment plan Will see patient: In office - Diagnostic Testing Diagnostic test were ordered, analyzed, and reviewed by me: Yes Radiological Interpretation: Reviewed by me - Risk of complications The pt has a high risk of morbidity or mortality based on: Decision regarding hospitilization or escalation of hosp level of care - Departure Departure Disposition: Home Clinical Impression: Biliary colic Condition: Stable Critical Care Time: No Referrals: KAYLEN OLIVAS NP [Primary Care Provider] - Follow up with PCP 1 day KASSIE COLMENARES [COURTESY STAFF] - 05/28/23 Instructions: Gallstones (DC), Gallbladder Diet Additional Instructions: Take pain medications as needed. Follow-up with general surgeon for reevaluation as scheduled. Return to ER for any worsening like intractable vomiting/pain/fever chills etc. Prescriptions: Hydrocodone/Acetaminophen [Hydrocodone-Acetamin 7.5-325] 1 each PO Q6HPRN PRN 3 Days #12 tablet MDD 4 PRN Reason: Pain Ondansetron ODT 4 MG [Zofran Odt 4 mg] 1 ea PO QIDPRN PRN #7 tablet PRN Reason: n/v
[2023-05-24 11:44] LABS: Absolute Neutrophil Ct (ANC) 4.89 x10^3/uL (1.4-6.9); BASOPHIL % 0.7 % (0.0-0.4); Basophil (Absolute #) 0.05 x10^3/uL (0-0.4); Eosinophil % 3.4 % (0.00-5.0); Eosinophil (Absolute #) 0.25 x10^3/uL (0-0.5); Hematocrit 38.2 % (35-47); Hemoglobin 12.6 g/dL (12.0-16.0); IMMATURE GRAN # 0.02 x10^3u/L (0.00-0.03); IMMATURE GRAN % 0.3 % (0.00-0.4); Lymphocyte (Absolute #) 1.48 x10^3/uL (1.0-4.6); Lymphocytes % 20.4 % (24.0-44.0); Mean Cell Volume 92.5 fL (78-100); Mean Corpuscular Hemoglobin 30.5 pg (26-32); Mean Platelet Volume 9.7 fL (7.5-11.0); Monocyte (Absolute #) 0.58 x10^3/uL (0.0-1.3); Neutrophil % 67.2 % (36.0-66.0); Platelet Count 287 x10^3/uL (150-450); Red Blood Count 4.13 x10^6/uL (4.1-5.4); Red Cell Distribution Width 12.6 % (11.5-14.0); White Blood Count 7.3 x10^3/uL (4.0-10.5)
[2023-05-24 11:49] LABS: Appearance Clear (Clear); Bacteria None Seen /HPF (None Seen); Bilirubin Negative (Negative); Blood Negative (Negative); Epithelial Cells Moderate /HPF (None Seen); Glucose, Urine Negative (Negative); Hyaline Casts NONE SEEN /LPF (0-2); Ketones Negative (Negative); Leukocyte Esterase Negative (Negative); Nitrite Negative (Negative); Ph 7.5 (4.6-8.0); Protein,Urine Dip Negative (Negative); RBC 0-2 /HPF (0-5); Specific Gravity 1.015 (1.005-1.030); Urobilinogen 0.2 mg/dL (0.2); WBC 0-2 /HPF (0-5)
[2023-05-24 11:50] LABS: ALBUMIN 4.2 g/dL (3.5-5.0); ALKALINE PHOSPHATASE 65 U/L (38-126); ANION GAP 12.9 MEQ/L (5-15); BLOOD UREA NITROGEN 15 mg/dL (7-17); CHLORIDE 99 mmol/L (98-107); Calcium 8.8 mg/dL (8.4-10.2); Carbon Dioxide 28 mmol/L (22-30); Creatinine 1 0.79 mg/dL (0.52-1.04); EST GLOMERULAR FILTRATION RATE > 60.0 ML/MIN; Glucose 100 mg/dL (74-106); LIPASE 146 U/L (23-300); SGOT/AST 32 U/L (14-36); SGPT/ALT 23 U/L (0-35); SODIUM 136 mmol/L (137-145); Total Protein 7.3 g/dL (6.3-8.2)
[2023-05-24 11:50] LABS: ADD URINE CULTURE? NO (NO)
--- NOTE | 2023-05-24 12:30 | XRAY ---
Indication: Right upper quadrant pain. Two-dimensional gallbladder sonogram performed. Comparison: None Visualized gallbladder demonstrates mild sludge. No gallstones, wall thickening, or pericholecystic fluid. Common bile duct measures 3.9 mm. No intrahepatic biliary distention. Remaining visualized liver and pancreas sonographically unremarkable. Right kidney measures 12.1 cm in length with incidental 5.4 cm upper pole cyst. Impression: Right renal cyst and gallbladder sludge. Remaining gallbladder sonogram negative.
[2023-05-24] MEDS ORDERED: TORAdol 30 mg Injection IM ONE (13:04)
[2023-05-24] MEDS ORDERED: TORAdol 30 mg Injection ONE (13:06)
[2023-05-24 14:58] VITALS: O2SAT 99
[2023-05-24 15:07] VITALS: BP 122/57; PULSE 60; RESP 22
== END 2023-05-24 15:25 | disposition home or self-care (01) ==
LOC: ED 10:46
DX: K80.50 Calculus of bile duct without cholangitis or cholecystitis without obstruction (principal); R10.11 Right upper quadrant pain; E78.5 Hyperlipidemia, unspecified; I10 Essential (primary) hypertension; Z79.891 Long term (current) use of opiate analgesic; Z79.899 Other long term (current) drug therapy
CPT/HCPCS: 36000; 36415; 76705; 80053; 81001; 83690; 85025; 96360; 96372; 96374; 96375; 99284; J1885; J2270; J2405

== ENCOUNTER 2023-06-04 11:29 | Day surgery (SDC) | payer MEDICARE ==
--- NOTE | 2023-06-04 09:40 | HP ---
DATE OF SURGERY: 06/04/2023 HISTORY OF PRESENT ILLNESS: The patient is a 68-year-old with right upper quadrant pain, had ultrasound with sludge in the past. History of urinary tract infection in the past. PAST MEDICAL HISTORY: Arthritis, reflux, gastroesophageal reflux disease, hypertension and hyperlipidemia. PAST SURGICAL HISTORY: Carpal tunnel. Neck fusion. section. Bilateral tubal. MEDICATIONS: Buspirone, diclofenac, pantoprazole, venlafaxine, Montelukast, amlodipine, Mobic, Sambucus elderberry, probiotic, atorvastatin, lisinopril, B12, aspirin, coq-10, calcium, vitamin D3, multivitamin, Bisoprolol fumarate, ALLERGIES: COMPAZINE. IODINE. SULFA. FAMILY HISTORY: Negative. SOCIAL HISTORY: No smoking or alcohol abuse. REVIEW OF SYSTEMS: Fourteen systems reviewed. No chest pain or palpitations. Other systems negative or noncontributory as above and per preadmission questionnaire. PHYSICAL EXAMINATION: Height 5'6". BMI 21. GENERAL: No acute distress. HEENT: Sclerae nonicteric. EOMI. Oral mucous membranes moist. NECK: No JVD. CHEST: Equal excursion, nonlabored breathing. CVS: Regular rate and rhythm. ABDOMEN: Soft, mild tenderness right upper quadrant. No peritoneal signs. EXTREMITIES: No cyanosis or edema. NEURO: Alert, oriented, moving extremities symmetrically. RECTAL: Deferred timed to endoscopy exam. PSYCH: Appropriate mood and affect. SKIN: Dry. IMPRESSION: Right upper quadrant pain. Ultrasound showed some sludge, question whether she had some chronic cholecystitis, acute exacerbation of sludge versus gastritis, peptic ulcer disease or other etiology. Discussed options, risks of cholecystectomy and endoscopy at length with the patient. She prefers to go ahead and check upper endoscopy first to rule out gastritis versus peptic ulcer disease. If negative she will consider cholecystectomy. Risks of endoscopy Including but not limited to bleeding or infection, risk of bowel injury or perforation, risk of missed or nondiagnosis or incomplete exam, possibly requiring barium swallow, other studies or procedures. General risk of anesthesia or sedation, risk of bowel prep but not limited to. Will proceed with EGD possible biopsy under MAC anesthesia as an outpatient. Otherwise continue medications for urinary tract infection, arthritis, reflux and hypertension.
[2023-06-04] MEDS ORDERED: Lactated Ringers 1,000 ML IV SCH (11:30)
[2023-06-04 12:02] VITALS: RESP 18
[2023-06-04] MEDS ORDERED: DIPRIVAN 200 MG/20 ML IV ONE (14:16)
[2023-06-04] MEDS ORDERED: Xylocaine-Mpf 2% 5 Ml Vial ONE (14:16)
[2023-06-04] MEDS ORDERED: Versed 2 MG/2 ML Injection ONE (14:16)
[2023-06-04 14:58] VITALS: TEMP 97.4; O2SAT 97
[2023-06-04 15:11] VITALS: BP 119/60; PULSE 63
--- NOTE | 2023-06-05 11:05 | OP ---
SURGERY DATE/TIME: 06/04/2023 1427 PREOPERATIVE DIAGNOSIS: History of nausea, history of right upper quadrant pain, need for upper endoscopy to evaluate for gastritis, peptic ulcer disease, celiac disease or other etiology. Prior history of ultrasound showing sludge in the gallbladder, question chronic cholecystitis. POSTOPERATIVE DIAGNOSES: 1) Minimal to mild gastric erythema and some congestion. 2) Some salmon-pink mucosa extending up the esophagus, early esophagitis or early Ashford's esophagus. PROCEDURES: 1) EGD with cold biopsy of small bowel to evaluate for celiac disease. 2) Cold biopsy of antrum to evaluate for Helicobacter pylori. 3) Cold biopsy gastric polyp to evaluate for short segment mild distal esophagitis versus early Ashford's esophagus, path pending SURGEON: Dr. Eddi Irwin. CHEF DE FROID: Cindy López, Medical Student 3. ANESTHESIA: MAC. ESTIMATED BLOOD LOSS: Minimal. INDICATIONS: As noted above. Risks and benefits explained in detail and not limited to and consent obtained. DESCRIPTION OF PROCEDURE AND FINDINGS: The patient is taken to the endoscopy room. MAC anesthesia introduced. After official time out and no disagreement with planned procedure, a bite block positioned. Video gastroscope easily passed down the esophagus through the patent pylorus to the junction of the third and fourth portion of the duodenum. The duodenum is grossly unremarkable. Cold biopsy taken to evaluate for celiac sprue given her right upper quadrant pain and nausea. Good hemostasis noted. Scope pulled back in the stomach. There was some minimal to mild gastric erythema and some congestion. Cold biopsy taken to evaluate for early gastritis to evaluate for Helicobacter pylori. There are no signs of any ulcers. On retroflexion the gastroesophageal junction snug against the scope. She did have a small gastric polyp that was removed with cold biopsy forceps. The scope pulled back to the gastroesophageal junction about 40 cm. There was a short segment about 30 mm or so of some salmon-pink mucosa extending up the esophagus early esophagitis or early Ashford's esophagus. Multiple cold biopsies taken where the salmon-pink mucosa was noted. The remainder of the esophagus grossly unremarkable. No signs of any obvious masses or lesions. The scope is withdrawn. Findings discussed with the family out in the waiting area. I will see her back in the office to go over the results and decide if she agreeable to consider cholecystectomy.
== END 2023-06-04 15:28 | disposition home or self-care (01) ==
LOC: SDC 11:29
PROVIDERS: ATTEND Surgery
DX: K29.70 Gastritis, unspecified, without bleeding (principal); R11.0 Nausea; R10.11 Right upper quadrant pain; K82.8 Other specified diseases of gallbladder; K31.89 Other diseases of stomach and duodenum; K20.90 Esophagitis, unspecified without bleeding
CPT/HCPCS: J2250; J2704

== ENCOUNTER 2023-07-19 11:21 | Day surgery (SDC) | payer MEDICARE ==
[2023-07-19] MEDS ORDERED: Decadron 4 MG INJ IV ONE (11:22)
[2023-07-19] MEDS ORDERED: LIDOCAINE HCL 2% 100 MG/5 ML IJ ONE (11:22)
[2023-07-19] MEDS ORDERED: DIPRIVAN 200 MG/20 ML IV ONE (13:15)
--- NOTE | 2023-07-19 15:02 | XRAY ---
Indication: Left C3-C5 MBB. Intraoperative fluoroscopy provided for 10 seconds. 2 digital spot images submitted for interpretation demonstrates posterior needle tips projecting over the expected left C3-C5 nerve roots. Correlate with intraoperative findings/report. Incidental lower cervical fusion hardware.
--- NOTE | 2023-07-19 15:18 | XRAY ---
10 seconds of fluoroscopy was used in surgery for a left C3-C5 MBB.
[2023-07-19] MEDS ORDERED: Lactated Ringers 1,000 ML IV ONE (16:28)
== END 2023-07-19 13:45 | disposition home or self-care (01) ==
LOC: SDC-PAIN 11:21
PROVIDERS: ATTEND Psychiatry & Neurology Pain Medicine
DX: M47.812 Spondylosis without myelopathy or radiculopathy, cervical region (principal)
CPT/HCPCS: 64490; 64491; 72040; 77002; J1100; J2704

== ENCOUNTER 2023-10-08 09:36 | Day surgery (SDC) | payer MEDICARE ==
--- NOTE | 2023-07-23 09:00 | HP ---
DATE OF SURGERY: 07/23/2023 HISTORY OF PRESENT ILLNESS: The patient is a 68-year-old with some nausea and right upper quadrant pain, abnormal ultrasound with some sludge. She had some chronic cholecystitis. She had nausea and right upper quadrant pain. History of urinary tract infection in the past. PAST MEDICAL HISTORY: Arthritis, rhinitis, heartburn, urinary tract infection, reflux. PAST SURGICAL HISTORY: section. Neck fusion. Carpal tunnel release. Bilateral tubal. MEDICATIONS: Buspirone, diclofenac, pantoprazole, venlafaxine, Montelukast, amlodipine, Sambucus elderberry, probiotic, atorvastatin, lisinopril, B12, aspirin, gabapentin, coq-10, calcium, vitamin D3, multivitamin, Bisoprolol fumarate. ALLERGIES: COMPAZINE. IODINE. SULFA. FAMILY HISTORY: Negative in regards to this problem. Negative for colon cancer. SOCIAL HISTORY: No smoking or alcohol abuse. REVIEW OF SYSTEMS: Twelve systems reviewed. No chest pain or palpitations. Other systems negative or noncontributory as above and per preadmission questionnaire. PHYSICAL EXAMINATION: Height 5'6". BMI 21. GENERAL: No acute distress. HEENT: Sclerae nonicteric. EOMI. Oral mucous membranes moist. NECK: No JVD. CHEST: Equal excursion, nonlabored breathing. CVS: Regular rate and rhythm. ABDOMEN: Soft, mild tenderness right upper quadrant. EXTREMITIES: No cyanosis or edema. NEURO: Alert, oriented, moving extremities symmetrically. RECTAL: Deferred timed to endoscopy exam. PSYCH: Appropriate mood and affect. SKIN: Dry. IMPRESSION: Nausea, vomiting, abnormal ultrasound showing sludge question acute exacerbation of chronic cholecystitis, cholelithiasis. The patient was due to have an upper endoscopy first. Nausea has been better. She had constipation per patient, some low abdominal pressure and burning. Last colonoscopy a few years ago. I offered to check colonoscopy. No blood stools. She had some change in bowel habits. Family history negative for colon cancer. Question whether she had acute exacerbation of chronic cholecystitis in the past. She is uncertain about cholecystectomy, consider HIDA scan at this point. Follow up with colonoscopy given her change in bowel habits. Risks were explained in detail including bleeding or infection, risk of bowel injury or perforation possibly requiring further procedure, risk of missed or nondiagnosis or incomplete exam possibly requiring barium enema, other studies or procedures, general risk of anesthesia or sedation. Will proceed with outpatient colonoscopy under MAC anesthesia. If that is unremarkable and she has persistent right upper quadrant occasionally to her back she could then consider cholecystectomy for possible chronic cholecystitis or check HIDA scan first. At this time she agrees to proceed with outpatient colonoscopy under MAC anesthesia as an outpatient.
--- NOTE | 2023-10-08 08:16 | HP ---
DATE OF SURGERY: 10/08/2023 HISTORY OF PRESENT ILLNESS: The patient has had problems with constipation, some lower abdominal pressure and burning. Last colonoscopy was nearly three years or so ago. The patient had colonoscopy. He had some prior nausea and right upper quadrant pain. He had sludge on an ultrasound. However, her nausea is better now. She still has the constipation. No bloody stools. She has had a change in bowel habits. She has occasional right upper quadrant pain. PAST MEDICAL HISTORY: Arthritis, heartburn, reflux. PAST SURGICAL HISTORY: section. Neck fusion. Carpal tunnel release. Bilateral tubal. She had upper endoscopy in the past. MEDICATIONS: Buspirone, diclofenac, pantoprazole, venlafaxine, Montelukast, amlodipine, Sambucus elderberry, probiotic, atorvastatin, lisinopril, B12, aspirin, CoQ-10, gabapentin, calcium, vitamin D3, multivitamin, Bisoprolol, ALLERGIES: COMPAZINE. IODINE. SULFA. FAMILY HISTORY: Negative in regards to this problem. Negative for colon cancer. SOCIAL HISTORY: No smoking or alcohol abuse. REVIEW OF SYSTEMS: Twelve systems reviewed. No chest pain or palpitations. Other systems negative or noncontributory as above and per preadmission questionnaire. PHYSICAL EXAMINATION: Height 5'6". BMI 21.04. GENERAL: No acute distress. HEENT: Sclerae nonicteric. EOMI. Oral mucous membranes moist. NECK: No JVD. CHEST: Equal excursion, nonlabored breathing. CVS: Regular rate and rhythm. ABDOMEN: Soft. No peritoneal signs. EXTREMITIES: No significant edema. NEURO: Alert, oriented, moving extremities symmetrically. RECTAL: Deferred timed to endoscopy exam. PSYCH: Appropriate mood and affect. SKIN: Dry. IMPRESSION: Change in bowel habits, needs colonoscopy. Risks and benefits explained in detail but not including bleeding, infection, risk of bowel injury or perforation possibly requiring further probcedure, risk of missed or nondiagnosis or incomplete exam possibly requiring barium enema, other studies or procedures, general risk of anesthesia or sedation, risk of bowel prep but not limited to. Consent obtained. Will proceed with outpatient colonoscopy under MAC anesthesia.
[2023-10-08] MEDS ORDERED: Lactated Ringers 1,000 ML IV ONE (09:48)
[2023-10-08 10:03] VITALS: RESP 16
[2023-10-08] MEDS: Lactated Ringers 1,000 ML IV SCH (10:04)
[2023-10-08] MEDS ORDERED: Xylocaine-Mpf 2% 5 Ml Vial ONE (11:13)
[2023-10-08] MEDS ORDERED: DIPRIVAN 200 MG/20 ML IV ONE ×2 (11:13→11:26)
[2023-10-08] MEDS ORDERED: Versed 2 MG/2 ML Injection ONE (11:13)
[2023-10-08 12:18] VITALS: BP 167/66; PULSE 66; TEMP 97.2; O2SAT 97
--- NOTE | 2023-10-09 10:03 | OP ---
SURGERY DATE/TIME: 10/08/2023 1116 PREOPERATIVE DIAGNOSIS: Change in bowel habits and history of polyps, need for colonoscopy. POSTOPERATIVE DIAGNOSES: 1) Small polyp. 2) Fair bowel prep. 3) Small diverticulosis left colon. 4) ASA Class II. PROCEDURES: 1) Colonoscopy to cecum. 2) Random cold biopsies of colon to evaluate for microscopic colitis. 3) Cold biopsy mucosa, questionable submucosal lipoma versus artifact. 4) Hot biopsy polypectomy small sigmoid colon polyp. SURGEON: Dr. Keith Irwin M.D. ANESTHESIA: MAC. ESTIMATED BLOOD LOSS: Minimal. INDICATIONS: As noted above. Risks and benefits explained in detail but not limited to and consent obtained. DESCRIPTION OF PROCEDURE AND FINDINGS: The patient taken to the endoscopy room. MAC anesthesia induced. After official time out and no disagreement with planned procedure, digital rectal exam did not reveal any rectal masses. Video colonoscope inserted and passed up through the tortuous sigmoid, descending, transverse and ascending colon around to the cecum. Appendiceal orifice and ileocecal valve well visualized. The scope carefully withdrawn over the next nine minutes. Random cold biopsies taken in the colon to evaluate for microscopic colitis given her history of change in bowel habits. Prep overall was fair. There was a little bit of liquidy semisolid stool just limiting the exam for small lesions. There was a small raised area question whether submucosal lipoma, cold biopsy taken of mucosa overlying the area, with peristalsis it actually disappeared so this may be just an artifact. Good hemostasis noted. Scope pulled back to sigmoid colon. Small early polyp versus hyperplastic lesion removed with hot biopsy polypectomy. Good hemostasis noted. She had some mild diverticulosis left colon. No signs of any large polyps, masses or obstructing lesions. The scope is withdrawn. Findings discussed with the family out in the waiting area.
== END 2023-10-08 12:26 | disposition home or self-care (01) ==
LOC: SDC 09:36
PROVIDERS: ATTEND Surgery
DX: Z09 Encounter for follow-up examination after completed treatment for conditions other than malignant neoplasm (principal); Z86.010 Personal history of colon polyps; D12.0 Benign neoplasm of cecum; D12.5 Benign neoplasm of sigmoid colon; R19.4 Change in bowel habit; K57.30 Diverticulosis of large intestine without perforation or abscess without bleeding
CPT/HCPCS: 88305; 93005; J2250; J2704